=== PATIENT | female | born 1985 | race Caucasian/White ===

== ENCOUNTER 2017-03-07 14:20 | Outpatient (CLI) | payer MEDICAID ==
[~2017-03-07] VITALS: Ht 162.6 cm; Wt 58.7 kg
[2017-03-07 15:36] VITALS: Ht 162.6 cm; Wt 58.7 kg
[2017-03-07 15:37] VITALS: BP 111/71; PULSE 90
[2017-03-07] MEDS ORDERED: PRENAT PO (15:38)
[2017-03-07 15:46] LABS: ADD UMIC YES; UR ASCORBIC ACID NEGATIVE (NEGATIVE); UR BACTERIA FEW /HPF (NONE SEEN); UR BILIRUBIN (Dip) NEGATIVE (NEGATIVE); UR BLOOD (Dip) 1+ mg/dL (NEGATIVE); UR CLARITY SLIGHTLY CLOUDY (CLEAR); UR COLOR YELLOW (YELLOW); UR GLUCOSE (Dip) NEGATIVE (NEGATIVE); UR KETONES (Dip) NEGATIVE (NEGATIVE); UR LEUKOCYTE ESTERASE (Dip) 3+ Leu/ul (NEGATIVE); UR NITRITE (Dip) NEGATIVE (NEGATIVE); UR RBC 6 /HPF (0-5); UR SPECIFIC GRAVITY (Dip) 1.016 (1.003-1.030); UR TOTAL PROTEIN (Dip) NEGATIVE (NEGATIVE); UR UROBILINOGEN (Dip) NEGATIVE (NEGATIVE)
--- NOTE | 2017-03-07 18:46 | CONS ---
Date/Time of Note Date/Time of Note DATE: 03/07/17 TIME: 18:37 Consultation Date/Type/Reason Admit Date/Time March 07, 2007 OB triage consult Reason for Consultation This patient is a 31 years old 4 para 3 with 3 spontaneous vaginal delivery in the past with EDC of June 26, 2017 which makes her now 24 weeks and 2 days She is now 19 and she is complaining of postcoital discomfort and pain and frequent urination since intercourse On examination basically she is a well-developed well-nourished lady admitted term her vital signs are generally within normal limits. . She has slight right flank tenderness with blood pressure of 111/71, pulse rate 90 respiration, 18 temperature 98.2, patient she does have some degree of CVA tenderness as well as abdominal tenderness is slightly occasional contractions pain that she describes as 5/10 generally does not seem to be very uncomfortable and to be repeated a urine test and the result came back leukoesterase of 3+ WBC 15 per field RBC as well as red blood cells were elevated on her urine. Hx of Present Illness Laboratory Tests Test 03/07/17 15:00 Urine Color YELLOW Urine Clarity SLIGHTLY CLOUDY Urine pH 6.0 Urine Specific [place] 1.016 Urine Ketones NEGATIVEmg/dL Urine Nitrite NEGATIVEmg/dL Urine Bilirubin NEGATIVEmg/dL Urine Urobilinogen NEGATIVEmg/dL Urine Leukocyte Esterase 3+Luis/ul Urine Microscopic RBC 6/HPF Urine Microscopic WBC 15/HPF Urine Bacteria FEW/HPF Urine Hemoglobin 1+mg/dL Urine Glucose NEGATIVEmg/dL Urine Total Protein NEGATIVEmg/dl Constitutional: No chills, No diaphoresis, No disoriented, No febrile, No improved, No no complaints, No other, No poor po, No requiring IVF, No requiring O2 Eyes: No discharge, No no complaints, No other, No pain, No redness, No visual change ENT: No bleeding, No congestion, No discharge, No dysphagia, No no complaints, No other, No pain, No sore throat Respiratory: No cough, No no complaints, No other, No pain, No pleuritic pain, No shortness of breath, No sputum, No wheezing Cardiovascular: No chest pain, No edema, No lightheadedness, No no complaints, No orthopenea, No other, No palpitations, No paroxysmal nocturnal dyspnea Gastrointestinal: other, No blood, No constipation, No decreased appetite, No diarrhea, No flatus, No nausea, No no complaints, No pain, No passing stool, No vomiting Genitourinary: other (Slight suprapubic pain as well as slight left costovertebral angle tenderness), No bleeding, No discharge, No dysuria, No flank pain, No hematuria, No no complaints Musculoskeletal: No back pain, No bone/joint pain, No neck pain, No no complaints, No other, No restricted range of motion, No swelling Skin: No bruising, No erythema, No laceration, No no complaints, No other, No pruritis, No rash, No skin lesions Neurologic: No confusion, No dizziness, No focal-weakness, No headache, No no complaints, No other, No seizure, No syncope Endocrine: No dry skin, No no complaints, No other, No polydypsia, No polyuria , No temp intolerance Additional Comments Disposition: With these finding and possibility of urinary tract infection a prescription given to the patient for Macrobid 100 mg tablets #20 to be taken 1 every 12 hours. To have a her urinalysis and culture sensitivity significant few days after determination of her antibiotic course. If the pain continues she will need to have a renal ultrasound study Social History Smoking Status: Never smoker Exam/Review of Systems Vital Signs Vitals Vital Signs Date Time Temp Pulse Resp B/P Pulse Ox O2 Delivery O2 Flow Rate FiO2 03/07/17 15:37 98.2 90 111/71 Results Results 24 hrs Laboratory Tests Test 03/07/17 15:00 Urine Color YELLOW Urine Clarity SLIGHTLY CLOUDY A Urine pH 6.0 Urine Specific [place] 1.016 Urine Ketones NEGATIVE Urine Nitrite NEGATIVE Urine Bilirubin NEGATIVE Urine Urobilinogen NEGATIVE Urine Leukocyte Esterase 3+ H Urine Microscopic RBC 6 H Urine Microscopic WBC 15 H Urine Bacteria FEW A Urine Hemoglobin 1+ H Urine Glucose NEGATIVE Urine Total Protein NEGATIVE LEYDI RON MD Mar 07, 2017 18:46
--- NOTE | 2017-03-07 19:23 | TRIAGE ---
OB Triage Datetime Report Generated by CPN: 03/07/2017 19:23 Datetime: 03/07/2017 18:09 Labor Evaluation Frequency: 0 Monitor Mode: External Pattern: Normal: <= 5 Contractions in 10 Minutes Resting Tone [place]: Relaxed Heart Rate FHR Baseline Rate: 145 Monitor Mode: External US Variability: Moderate 6-25 bpm Decelerations: None Category: Category I Comments: difficult to trace due to gestational age Pain Assessment Pain Scale: 3 Pain Presence: Constant Pain Type: Ache Pain Location: Back Pain Goal: 3 Pain Relief Measures: Comfort Measures Datetime: 03/07/2017 18:08 Stage of : OB Triage Datetime: 03/07/2017 16:09 Labor Evaluation Frequency: 0 Monitor Mode: External Pattern: Normal: <= 5 Contractions in 10 Minutes Resting Tone [place]: Relaxed Heart Rate FHR Baseline Rate: 145 Monitor Mode: External US Variability: Moderate 6-25 bpm Decelerations: None Category: Category I Pain Assessment Pain Scale: 5 Pain Presence: Constant Pain Type: Cramping Pain Location: Perineum Pain Goal: 3 Pain Relief Measures: Comfort Measures Datetime: 03/07/2017 15:31 Stage of : OB Triage Assessment Type: Triage Maternal Assessment Level of Consciousness: Fully Conscious DTR's/Clonus: DTRs 2+; No Clonus Headache: Denies Blurred Vision: No Respiratory Effort: Unlabored; Regular Rhythm; Equal Expansion Breath Sounds, Left: Clear and Equal Breath Sounds, Right: Clear and Equal Nausea/Vomiting: Denies RUQ Epigastric Pain: Denies Facial Edema: None Temperature Route: Axillary Fall Risk Assessment History of Falling: (0) No Secondary Diagnosis: (0) No Ambulatory Aid: (0) Bedrest/Nurse Assist IV Therapy: (0) No Gait: (0) Normal/Bedrest/Immobile Mental Status: (0) Oriented to Own Ability Fall Score: 0 Fall Risk Score Definition: No Risk: No action required Labor Evaluation Frequency: 3-5 Monitor Mode: External Duration (sec)2399: 10-20 Quality: Mild Pattern: Normal: <= 5 Contractions in 10 Minutes Resting Tone [place]: Relaxed Heart Rate FHR Baseline Rate: 145 Monitor Mode: External US Pain Assessment Pain Scale: 5 Pain Presence: Intermittent Pain Type: Cramping Pain Location: Perineum Pain Goal: 3 Pain Relief Measures: Comfort Measures Datetime: 03/07/2017 15:30 Time of Arrival: 03/07/2017 14:14 EGA: 24.1 Arrived By: Ambulatory Arrived From: Home Chief Complaint: C/O LOWER PERINEUM PAIN POST COITUS TODAY. DENIES BLEEDING OR LEAKING OF FLUID. RT SIDE FLANK PAIN UPON PALPATION Movement: Present Contractions: Denies/Absent Rupture of Membranes: Denies Vaginal Bleeding: None Vaginal Discharge: Denies Recent Sexual Intercouse: Yes Abdominal Trauma: Not Applicable Patient Complaints: Cramping Time Provider Notified: 03/07/2017 18:08 Provider Notified: [email or web address] Initial Plan: MONITOR, URINALYSIS
== END 2017-03-07 18:30 | disposition home or self-care (01) ==
LOC: L-D 14:20 → OBT 14:20
PROVIDERS: ATTEND Obstetrics & Gynecology
DX: O26.892 Other specified pregnancy related conditions, second trimester (principal); Z3A.24 24 weeks gestation of pregnancy; R10.9 Unspecified abdominal pain
CPT/HCPCS: 81001; Z7500; G0463